=== PATIENT | female | born 1960 | race African-American/Black ===

== ENCOUNTER 2017-06-04 15:45 | Emergency (ER) | payer OTHER ==
[~2017-06-04] VITALS: Ht 160 cm; Wt 83.5 kg
--- NOTE | ~2017-06-04 | EKG ---
[address] [address] ELECTROCARDIOGRAM REPORT Name: DIANNA JEREZ MARISA [facility]: [facility] DOTHANJonatan#: [id number] Admission: 06/04/17 Attend Phys: Discharge: 06/04/17 Date of : 64 Report #: [id number] THIS REPORT FOR: //name// [facility] ED Test Date: 2017-06-04 Test Time: 16:28:00 Pat Name: DIANNA JEREZ Department: Room: Gender: F Dba: [id number] : 1960 Requested By: Felton Turner Order Number: [id number] MD: Porfirio Gaxiola Measurements Intervals [place] Rate: 64 P: 54 AL: 138 QRS: 70 QRSD: 81 T: 38 QT: 418 QTc: 432 Interpretive Statements Sinus rhythm Probable left atrial enlargement Compared to ECG 07/09/2016 10:53:44 Right ventricular hypertrophy no longer present T-wave abnormality no longer present Electronically Signed On 06-04-2017 21:25:48 CDT by Porfirio Gaxiola [email or web address] <ELECTRONICALLY SIGNED> By: Porfirio Gaxiola MD 06/04/172124 27 Porfirio Gaxiola MD /ISIAH
[~2017-06-04 15:45] MED LIST: ACYCLOVIR 400400 MG PO; ADULT ONE DAI200 MCG PO; BYSTOLIC 5 MG5 M1 PO; CARVEDILOL25 MG PO; CATAPRES0.2 MG PO; CHLORTHALIDONE25 MG PO; COMPAZINE10 MG PO; COREG25 MG PO; CORTEF5 MG PO; COZAAR 50 MG TA50 M2 PO; DEXAMETHASONE 44 M1 PO; HYDROCODONE-AP1 EAC6 PO; IBUPROFEN 200200 M1 PO; IMITREX100 MG PO; LEXAPRO 10 MG T10 M1 PO; LISINOPRIL10 MG PO; LOSARTAN POTAS100 MG PO; NORCO 5-325 TA1 EACH PO; POTASSIUM20 PO; PREDNISONE 20 M20 M1 PO; SIMVASTATIN40 MG PO; XANAX 0.5 MG0.5 MG PO; ZANTAC 150MG T150 MG PO
[2017-06-04 16:52] LABS: ABSOLUTE NEUTROPHILS 3.9 thou/uL (1.4-8.2); BASOPHILS 0.8 % (0.0-2.0); EOSINOPHILS 1.4 % (0.0-3.0); HEMATOCRIT 41.3 % (37.0-47.0); HEMOGLOBIN 13.7 gm/dL (12.0-15.0); LYMPHOCYTES 24.9 % (24.0-44.0); MCH 27.7 pg (26.0-34.0); MCHC 33.2 g/dL (28.0-37.0); MCV 83.2 fL (80.0-100.0); MONOCYTES 11.6 % (1.0-8.0); PLATELET COUNT 231 thou/uL (150-400); POLYS 61.3 % (36.0-66.0); RBC 4.96 mil/uL (4.20-5.00); RDW 14.5 % (10.5-14.5); WBC 6.4 thou/uL (4.0-11.0)
[2017-06-04 16:53] LABS: MANUAL DIFF NO
[2017-06-04 17:16] LABS: CALCIUM 9.7 mg/dL (8.5-10.1); CREATININE 0.9 mg/dL (0.6-1.0); POTASSIUM 3.5 mmol/L (3.5-5.1)
[2017-06-04 17:22] LABS: ALBUMIN 3.6 g/dL (3.4-5.0); TOTAL BILIRUBIN 0.6 mg/dL (<0.1-1.0); TOTAL PROTEIN 7.5 g/dL (6.4-8.2)
[2017-06-04] MEDS ORDERED: PHENERGAN25 M1 RECTAL (17:48)
[2017-06-04] MEDS ORDERED: TRAMADOL 50 MG50 MG PO (17:52)
== END 2017-06-04 18:15 | disposition home or self-care (01) ==
LOC: ER 15:45
PROVIDERS: Physician Assistant
DX: R11.2 Nausea with vomiting, unspecified (principal); T39.95XA Adverse effect of unspecified nonopioid analgesic, antipyretic and antirheumatic, initial encounter; I10 Essential (primary) hypertension; E78.00 Pure hypercholesterolemia, unspecified; G43.909 Migraine, unspecified, not intractable, without status migrainosus; F32.9 Major depressive disorder, single episode, unspecified; Z90.49 Acquired absence of other specified parts of digestive tract; Z85.3 Personal history of malignant neoplasm of breast; Z90.710 Acquired absence of both cervix and uterus; Y92.89 Other specified places as the place of occurrence of the external cause; Z88.8 Allergy status to other drugs, medicaments and biological substances

== ENCOUNTER 2019-11-10 16:56 | Emergency (ER) | payer OTHER ==
[~2019-11-10] VITALS: Ht 160 cm; Wt 67.1 kg
[~2019-11-10 16:56] MED LIST changes: +MULTIVITAMINS PO; +NAPROSYN500 MG PO; +ONDANSETRON HCL4 M2 PO; +PHENERGAN25 M1 RECTAL; +PROMS25 WY RECTAL; +TRAMADOL 50 MG50 MG PO
[2019-11-10 17:14] LABS: URINE BILIRUBIN NEGATIVE (Negative); URINE BLOOD TRACE (Negative); URINE CLARITY CLEAR; URINE COLOR YELLOW; URINE GLUCOSE-RANDOM* NEGATIVE (Negative); URINE KETONES NEGATIVE (Negative); URINE PROTEIN (DIPSTICK) NEGATIVE (Negative); URINE UROBILINOGEN 0.2 E.U./dl (0.2-1.0)
[2019-11-10 17:16] LABS: URINE LEUKOCYTES-REFLEX 1+ (Negative); URINE NITRITE-REFLEX POSITIVE (Negative)
--- NOTE | 2019-11-10 17:24 | EKG ---
[facility] [place] [address] ELECTROCARDIOGRAM REPORT Name: DIANNA JEREZ Room #: PRE M.R.#: [id number] Admission: Attend Phys: Discharge: Date of : 64 Report #: [id number] THIS REPORT FOR: cc: Ammy Alvarado MD, Luis F. MD ~ THIS REPORT FOR: //name// [facility] ED Test Date: 2019-11-10 Test Time: 17:11:06 Pat Name: DIANNA JEREZ Department: Room: Gender: F Bakery Supervisor: olegario : 1960 Requested By: Shayla Christianson Order Number: [id number] MD: Porfirio Gaxiola Measurements Intervals [place] Rate: 60 P: 75 VT: 123 QRS: 73 QRSD: 109 T: 26 QT: 433 QTc: 433 Interpretive Statements Sinus rhythm Left atrial enlargement Compared to ECG 04/21/2018 16:09:36 Electronically Signed On 11-10-2019 17:23:18 CDT by Porfirio Gaxiola [email or web address] <ELECTRONICALLY SIGNED> By: Porfirio Gaxiola MD 11/10/19 1723 10 10 Porfirio Gaxiola MD /ISIAH
[2019-11-10 17:27] LABS: BACTERIA-REFLEX >30 Many /HPF (None Seen); CASTS None Seen /LPF (None Seen); CRYSTALS None Seen /LPF (None Seen); SQUAMOUS 0-3 Few /LPF (0-3); URINE RBC 0-2 Rare /HPF (0-2); URINE WBC-REFLEX 6-15 Few /HPF (0-5)
[2019-11-10 17:51] LABS: HEMATOCRIT 45.9 % (37.0-47.0); HEMOGLOBIN 14.7 gm/dL (12.0-15.0); MCH 27.5 pg (26.0-34.0); MCHC 31.9 g/dL (28.0-37.0); MCV 86.2 fL (80.0-100.0); RBC 5.33 mil/uL (4.20-5.00); RDW 15.2 % (10.5-14.5); WBC 6.3 thou/uL (4.0-11.0)
[2019-11-10 18:04] LABS: ANION GAP 7 mmol/L (7-16); BUN 11 mg/dL (7-18); CALCIUM 10.4 mg/dL (8.5-10.1); CHLORIDE 100 mmol/L (98-107); CO2 30 mmol/L (21-32); GLUCOSE 92 mg/dL (74-106); POTASSIUM 3.8 mmol/L (3.5-5.1); SODIUM 137 mmol/L (136-145)
[2019-11-10 18:14] LABS: ALBUMIN 4.1 g/dL (3.4-5.0); LIPASE 38 U/L (73-393); SGOT 16 U/L (15-37); SGPT 30 U/L (30-65); TOTAL BILIRUBIN 0.7 mg/dL (<0.1-1.0); TOTAL PROTEIN 8.3 g/dL (6.4-8.2); TROPONIN-I <0.06 ng/mL (<0.06)
[2019-11-10] MEDS ORDERED: PHENERGAN 25 MG25 M1 PO (21:08)
[2019-11-10] MEDS ORDERED: KEFLEX500 M1 PO (21:08)
[2019-11-10 21:20] VITALS: BP 180/78
== END 2019-11-10 21:29 | disposition home or self-care (01) ==
LOC: ER 16:56
PROVIDERS: Student in an Organized Health Care Education/Training Program
DX: N30.00 Acute cystitis without hematuria (principal); R11.2 Nausea with vomiting, unspecified; I10 Essential (primary) hypertension; G43.909 Migraine, unspecified, not intractable, without status migrainosus; E78.00 Pure hypercholesterolemia, unspecified; Z79.899 Other long term (current) drug therapy